=== PATIENT | female | born 1980 | race Caucasian/White ===

== ENCOUNTER 2021-09-27 15:11 | Observation (INO) | payer BC ==
[2021-09-27 15:59] LABS: Basophils % (A) 1 %; Eosinophils # (A) 0.1 k/uL (0-0.7); Eosinophils % (A) 1 %; HCT 42.6 % (34.0-46.0); HGB 13.7 gm/dL (11.4-16.0); Lymphocytes # (A) 1.5 k/uL (1.0-4.8); Lymphocytes % (A) 29 %; MCH 31.3 pg (25.0-35.0); MCHC 32.1 g/dL (31.0-37.0); MCV 97.7 fL (80.0-100.0); Mean Platelet Volume 7.2; Monocytes # (A) 0.3 k/uL (0-1.0); Monocytes % (A) 6 %; Neutrophils # (A) 3.2 k/uL (1.3-7.7); Neutrophils % (A) 61 %; Platelet Count 235 k/uL (150-450); RBC 4.36 m/uL (3.80-5.40); RDW 12.1 % (11.5-15.5); WBC 5.2 k/uL (3.8-10.6)
[2021-09-27 16:15] LABS: Partial Thromboplastin Time 23.4 sec (22.0-30.0); Prothrombin Time 10.9 sec (9.0-12.0)
[2021-09-27 16:20] LABS: ALT 8 U/L (4-34); AST 19 U/L (14-36); African American GFR (CKD) >90 (>60 ml/min/1.73 sqM); Albumin 4.2 g/dL (3.5-5.0); Alkaline Phosphatase 43 U/L (38-126); Anion Gap 7 mmol/L; Blood Urea Nitrogen 14 mg/dL (7-17); Calcium 9.1 mg/dL (8.4-10.2); Carbon Dioxide 24 mmol/L (22-30); Chloride 106 mmol/L (98-107); Glucose 85 mg/dL (74-99); Non-African American GFR(CKD) >90 (>60 ml/min/1.73 sqM); Potassium 3.8 mmol/L (3.5-5.1); Sodium 137 mmol/L (137-145); Total Bilirubin 0.4 mg/dL (0.2-1.3)
--- NOTE | 2021-09-27 17:45 | ED ---
General Adult HPI - General Chief complaint: Chest Pain Stated complaint: Chest Pain Time Seen by Provider: 09/27/21 17:34 Source: patient, RN notes reviewed Mode of arrival: ambulatory Limitations: no limitations - History of Present Illness Initial comments: Patient is a pleasant 41-year-old female presenting to the emergency Department with complaints of chest discomfort. Symptoms have been waxing and waning over the past week. No discomfort at this time. Discomfort feels like heaviness. No radiation. Patient did see her doctor who advised him to come to the emergency department. Patient does have strong family history of cardiac disease at a young age. No associated dyspnea, nausea, or diaphoresis. - Related Data Allergies Allergy/AdvReac Type Severity Reaction Status Date / Time No Known Allergies Allergy Verified 09/27/21 15:16 Review of Systems ROS Statement: Those systems with pertinent positive or pertinent negative responses have been documented in the HPI. ROS Other: All systems not noted in ROS Statement are negative. Constitutional: Denies: fever Eyes: Denies: eye pain ENT: Denies: ear pain Respiratory: Denies: cough Cardiovascular: Reports: as per HPI, chest pain Endocrine: Denies: fatigue Gastrointestinal: Denies: abdominal pain Genitourinary: Denies: dysuria Musculoskeletal: Denies: back pain Skin: Denies: rash Neurological: Denies: weakness Past Medical History Past Medical History: No Reported History History of Any Multi-Drug Resistant Organisms: None Reported Past Surgical History: No Surgical Hx Reported Past Psychological History: No Psychological Hx Reported Smoking Status: Never smoker Past Alcohol Use History: None Reported Past Drug Use History: None Reported General Exam Limitations: no limitations General appearance: alert, in no apparent distress Head exam: Present: normocephalic Eye exam: Present: normal appearance Neck exam: Present: normal inspection Respiratory exam: Present: normal lung sounds bilaterally. Absent: chest wall tenderness Cardiovascular Exam: Present: regular rate, normal rhythm Expanded Peripheral pulses: 2+: Radial (R), Radial (L), Dorsalis Pedis (R), Dorsalis Pedis (L) GI/Abdominal exam: Present: soft. Absent: tenderness Extremities exam: Present: normal inspection. Absent: pedal edema, calf tenderness Neurological exam: Present: alert Psychiatric exam: Present: normal affect, normal mood Skin exam: Present: normal color Course Vital Signs 09/27/21 15:16 Temperature 99.5 F Pulse Rate 105 H Respiratory 20 Rate Blood Pressure 151/88 O2 Sat by Pulse 100 Oximetry EKG Findings - EKG Comments: EKG Findings:: Normal sinus rhythm with rate of 86. NJ 118. QRS 98. QT 380. QTC 44. Normal axis. Low QRS voltage. Incomplete right bundle branch block. No acute ST change. Medical Decision Making - Medical Decision Making Patient reevaluated and resting comfortably in bed. Patient updated on results and plan. Case discussed with Dr. Santo, admit covering for Dr. Flores. - Lab Data Result diagrams: 09/27/21 15:32 09/27/21 15:32 Lab Results 09/27/21 09/27/21 09/27/21 Range/Units 15:32 15:32 15:32 WBC 5.2 (3.8-10.6) k/uL RBC 4.36 (3.80-5.40) m/uL Hgb 13.7 (11.4-16.0) gm/dL Hct 42.6 (34.0-46.0) % MCV 97.7 (80.0-100.0) fL MCH 31.3 (25.0-35.0) pg MCHC 32.1 (31.0-37.0) g/dL RDW 12.1 (11.5-15.5) % Plt Count 235 (150-450) k/uL MPV 7.2 Neutrophils % 61 % Lymphocytes % 29 % Monocytes % 6 % Eosinophils % 1 % Basophils % 1 % Neutrophils # 3.2 (1.3-7.7) k/uL Lymphocytes # 1.5 (1.0-4.8) k/uL Monocytes # 0.3 (0-1.0) k/uL Eosinophils # 0.1 (0-0.7) k/uL Basophils # 0.0 (0-0.2) k/uL PT 10.9 (9.0-12.0) sec INR 1.0 (<1.2) APTT 23.4 (22.0-30.0) sec Sodium 137 (137-145) mmol/L Potassium 3.8 (3.5-5.1) mmol/L Chloride 106 (98-107) mmol/L Carbon Dioxide 24 (22-30) mmol/L Anion Gap 7 mmol/L BUN 14 (7-17) mg/dL Creatinine 0.62 (0.52-1.04) mg/dL Est GFR (CKD-EPI)AfAm >90 (>60 ml/min/1.73 sqM) Est GFR (CKD-EPI)NonAf >90 (>60 ml/min/1.73 sqM) Glucose 85 (74-99) mg/dL Calcium 9.1 (8.4-10.2) mg/dL Magnesium 2.0 (1.6-2.3) mg/dL Total Bilirubin 0.4 (0.2-1.3) mg/dL AST 19 (14-36) U/L ALT 8 (4-34) U/L Alkaline Phosphatase 43 (38-126) U/L Troponin I (0.000-0.034) ng/mL Total Protein 7.0 (6.3-8.2) g/dL Albumin 4.2 (3.5-5.0) g/dL 09/27/21 Range/Units 15:32 WBC (3.8-10.6) k/uL RBC (3.80-5.40) m/uL Hgb (11.4-16.0) gm/dL Hct (34.0-46.0) % MCV (80.0-100.0) fL MCH (25.0-35.0) pg MCHC (31.0-37.0) g/dL RDW (11.5-15.5) % Plt Count (150-450) k/uL MPV Neutrophils % % Lymphocytes % % Monocytes % % Eosinophils % % Basophils % % Neutrophils # (1.3-7.7) k/uL Lymphocytes # (1.0-4.8) k/uL Monocytes # (0-1.0) k/uL Eosinophils # (0-0.7) k/uL Basophils # (0-0.2) k/uL PT (9.0-12.0) sec INR (<1.2) APTT (22.0-30.0) sec Sodium (137-145) mmol/L Potassium (3.5-5.1) mmol/L Chloride (98-107) mmol/L Carbon Dioxide (22-30) mmol/L Anion Gap mmol/L BUN (7-17) mg/dL Creatinine (0.52-1.04) mg/dL Est GFR (CKD-EPI)AfAm (>60 ml/min/1.73 sqM) Est GFR (CKD-EPI)NonAf (>60 ml/min/1.73 sqM) Glucose (74-99) mg/dL Calcium (8.4-10.2) mg/dL Magnesium (1.6-2.3) mg/dL Total Bilirubin (0.2-1.3) mg/dL AST (14-36) U/L ALT (4-34) U/L Alkaline Phosphatase (38-126) U/L Troponin I <0.012 (0.000-0.034) ng/mL Total Protein (6.3-8.2) g/dL Albumin (3.5-5.0) g/dL - Radiology Data Radiology results: image reviewed Disposition Clinical Impression: Chest pain Disposition: ADMITTED IP TO THIS [facility] Is patient prescribed a controlled substance at d/c from ED?: No Referrals: Dory Flores MD [Primary Care Provider] - 1-2 days Decision Time: 18:20
[2021-09-27] MEDS ORDERED: ASPIRIN 81 MG PO STA (18:20)
[2021-09-27] MEDS ORDERED: NITROGLYCERIN SL TABS 0.4 MG TAB SUBLINGUAL PRN (18:20)
--- NOTE | 2021-09-27 18:27 | XR ---
EXAMINATION TYPE: XR chest 1V portable DATE OF EXAM: 09/27/2021 COMPARISON: NONE HISTORY: Chest pressure TECHNIQUE: Single view FINDINGS: Heart and mediastinum are normal. Lungs are clear. Diaphragm is normal. Bony thorax is inta ct. IMPRESSION: Normal chest.
[2021-09-27] MEDS: NITROGLYCERIN OINT 1 INCH/GM PACKET TOPICAL SCH (19:05)
[2021-09-27] MEDS: ACETAMINOPHEN TAB 325 MG TAB PO PRN (21:59)
[2021-09-28] MEDS: NITROGLYCERIN OINT 1 INCH/GM PACKET TOPICAL SCH ×2 (01:40→05:58)
[2021-09-28 07:45] VITALS: BP 111/74; PULSE 75; RESP 18; TEMP 98.1
[2021-09-28] MEDS: ACETAMINOPHEN TAB 325 MG TAB PO PRN (07:53)
[2021-09-28] MEDS ORDERED: ASPIRIN 325 MG TAB PO SCH (09:00)
[2021-09-28] MEDS ORDERED: ASPIRIN 81 MG PO SCH (09:00)
--- NOTE | 2021-09-28 09:13 | P.CRDCN ---
History of Present Illness History of present illness: This is a 41 year old female with no significant past medical history. 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 We are consulted for chest pain. Patient presented to the emergency department with complaints of chest pressure. Patient states she began to have left sided chest pressure 1 week ago. She states it is intermittent, comes and goes. She states it lasts for about 30 minutes, however, a few days ago it lasted about 5 hours. She states she will sit down take some deep breaths and the chest pressure will resolve. She thought it was due to stress at work, however the pain has continued for 1 week. She had associated left arm heaviness. She denies associated diaphoresis, shortness of breath, nausea, vomiting. She denies fever, cough, chills, lightheadedness, dizziness, syncope or near syncope. She denies history of NV, CAD, hypertension, diabetes, stroke, or dyslipidemia. She has a significant family history of CAD. On her father's side her grandfather of an NV in his 30s, her father had NV in his 50s, and her uncle had an NV in his 50s as well. She denies smoking, alcohol or illicit drug use. She states she presented to her PCP office yesterday and was advised to go to the emergency department for further evaluation. DIAGNOSTICS EKG reveals sinus rhythm, heart rate 86, T wave inversion in lead III, incomplete right bundle branch block, no significant STT wave abnormalities to suggest ischemia. No prior EKG to compare Telemetry tracings indicate sinus rhythm, heart rate 70s80s Chest xray no acute cardiopulmonary process Laboratory reviewed, troponin negative 3, sodium 137, potassium 3.8, BUN 14, serum crit 0.6, magnesium 2.0, COVID-19 negative, CBC unremarkable Current home medications include aspirin 81 mg daily, zinc, vitamin D, vitamin C, Depo-Provera REVIEW OF SYSTEMS At the time of my exam: CONSTITUTIONAL: Denies fever or chills. CARDIOVASCULAR: Denies chest pain, shortness of breath, orthopnea, PND or palpitations. RESPIRATORY: Denies cough. GASTROINTESTINAL: Denies abdominal pain, diarrhea, constipation, nausea or vomiting. MUSCULOSKELETAL: Denies myalgias. NEUROLOGIC: Denies numbness, tingling, headache or weakness. ENDOCRINE: Denies fatigue, weight change, polydipsia or polyurina. GENITOURINARY: Denies burning, hematuria or urgency with micturation. HEMATOLOGIC: Denies history of anemia or bleeding. PHYSICAL EXAMINATION Blood pressure 111/74, heart rate 75, afebrile, oxygen saturation is 99% on room air CONSTITUTIONAL: No apparent distress. HEENT: Head is normocephalic. Pupils are equal, round. Sclerae anicteric. Mucous membranes of the mouth are moist. No JVD. No carotid bruit. CHEST EXAMINATION: Lungs are clear to auscultation. No chest wall tenderness is noted on palpation or with deep breathing. HEART EXAMINATION: Regular rate and rhythm. S1, S2 heard. No murmurs, gallops or rub. ABDOMEN: Soft, nontender. Positive bowel sounds. EXTREMITIES: 2+ peripheral pulses, no lower extremity edema and no calf ten derness. SKIN: Warm, dry NEUROLOGIC EXAMINATION: Patient is awake, alert and oriented x3. ASSESSMENT Chest pain, atypical, acute coronary has been ruled out Family history of coronary artery disease PLAN An acute coronary event has been ruled out with no EKG evidence of ischemia and negative cardiac enzymes. Obtain 2D echocardiogram and doppler study to assess cardiac structure and function. Perform Stress echo test to assess for stress induced cardiac ischemia. If abnormal will consider coronary angiography. Check Lipid Panel If stress test is negative for reversible ischemia, okay to discharge patient from cardiology perspective Thank you kindly for this consultation. Nurse Practitioner note has been reviewed, I agree with a documented findings and plan of care. Patient was seen and examined. Past Medical History Past Medical History: No Reported History History of Any Multi-Drug Resistant Organisms: None Reported Past Surgical History: No Surgical Hx Reported Past Anesthesia/Blood Transfusion Reactions: No Reported Reaction Past Psychological History: No Psychological Hx Reported Smoking Status: Never smoker Past Alcohol Use History: None Reported Past Drug Use History: None Reported - Past Family History Father Family Medical History: Myocardial Infarction (NV) Additional Family Medical History / Comment(s): from [place]. Mother Family Medical History: Congestive Heart Failure (CHF) Medications and Allergies Home Medications Medication Instructions Recorded Confirmed Type Ascorbic Acid [Vitamin C] 1,000 mg PO DAILY 09/27/21 09/27/21 History Aspirin EC [Ecotrin Low Dose] 81 mg PO DAILY 09/27/21 09/27/21 History Cholecalciferol [Vitamin D3 (25 25 mcg PO DAILY 09/27/21 09/27/21 History Mcg = 1000 Iu)] Medroxyprogesterone Acetate 150 mg IM Q84D 09/27/21 09/27/21 History [Depo-Provera] Zinc Gluconate [Zinc] 50 mg PO DAILY 09/27/21 09/27/21 History Allergies Allergy/AdvReac Type Severity Reaction Status Date / Time No Known Allergies Allergy Verified 09/27/21 15:16 Physical Exam Vitals: Vital Signs Temp Pulse Pulse Resp BP BP Pulse Ox 09/28/21 02:00 98.3 F 71 15 104/64 98 09/28/21 01:45 85 09/27/21 21:18 98.8 F 85 14 119/75 100 09/27/21 18:35 91 18 135/94 100 09/27/21 15:16 99.5 F 105 H 20 151/88 100 Intake and Output 09/27/21 09/28/21 09/28/21 22:59 06:59 14:59 Other: # Voids 2 Weight 77.111 kg Results 09/27/21 15:32 09/27/21 15:32 Cardiac Enzymes 09/27/21 09/27/21 09/27/21 Range/Units 15:32 15:32 18:40 AST 19 (14-36) U/L Troponin I <0.012 <0.012 (0.000-0.034) ng/mL 09/27/21 Range/Units 20:58 AST (14-36) U/L Troponin I 0.014 (0.000-0.034) ng/mL Coagulation 09/27/21 Range/Units 15:32 PT 10.9 (9.0-12.0) sec APTT 23.4 (22.0-30.0) sec CBC 09/27/21 Range/Units 15:32 WBC 5.2 (3.8-10.6) k/uL RBC 4.36 (3.80-5.40) m/uL Hgb 13.7 (11.4-16.0) gm/dL Hct 42.6 (34.0-46.0) % Plt Count 235 (150-450) k/uL Comprehensive Metabolic Panel 09/27/21 Range/Units 15:32 Sodium 137 (137-145) mmol/L Potassium 3.8 (3.5-5.1) mmol/L Chloride 106 (98-107) mmol/L Carbon Dioxide 24 (22-30) mmol/L BUN 14 (7-17) mg/dL Creatinine 0.62 (0.52-1.04) mg/dL Glucose 85 (74-99) mg/dL Calcium 9.1 (8.4-10.2) mg/dL AST 19 (14-36) U/L ALT 8 (4-34) U/L Alkaline Phosphatase 43 (38-126) U/L Total Protein 7.0 (6.3-8.2) g/dL Albumin 4.2 (3.5-5.0) g/dL Current Medications Generic Name Dose Route Start Last Admin Trade Name Freq PRN Reason Stop Dose Admin Acetaminophen 650 mg 09/27/21 21:53 09/27/21 21:59 Acetaminophen Tab 325 Mg Tab PO 650 mg Q6HR PRN Administration Fever and/ or Pain Aspirin 325 mg 09/28/21 09:00 Aspirin 325 Mg Tab PO DAILY MIS Nitroglycerin 0.4 mg 09/27/21 18:20 Nitroglycerin Sl Tabs 0.4 Mg Tab SUBLINGUAL Q5M PRN Chest Pain Nitroglycerin 0.5 inch 09/27/21 18:30 09/28/21 05:58 Nitroglycerin Oint 1 Inch/Gm Packet TOPICAL Not Given Q6HR MIS Intake and Output 09/27/21 09/28/21 09/28/21 22:59 06:59 14:59 Other: # Voids 2 Weight 77.111 kg 09/27/21 15:32 09/27/21 15:32
[2021-09-28 09:25] LABS: HDL Cholesterol 51.3 mg/dL (40.00-60.00)
[2021-09-28 09:36] LABS: Chol/HDL Ratio 2.94 Ratio
--- NOTE | 2021-09-28 10:45 | P.HPIM ---
History of Present Illness H&P Date: 09/28/21 Chief Complaint: Chest pain History and Physical and Discharge Summary This is a 41-year-old female with left-sided chest pressure/heaviness radiating down left arm ,fluctuating over the last week and a half in a patient with benign past medical history with the exception of family history of CAD at young age. Denies nausea vomiting or diarrhea. Denies shortness of breath. Denies nicotine or illicit drug use. Patient reports ongoing significant stress at work. EKG reported normal sinus rhythm, with incomplete right bundle branch block. Troponins negative 3. Tested negative for coronavirus. Chest x-ray reported normal. Lipid panel pending. Hematology, coagulation and chemistry panel is unremarkable .No further chest pain since yesterday. Cardiology consult in place. Review of Systems ROS Statement: Those systems with pertinent positive or pertinent negative responses have been documented in the HPI. ROS Other: All systems not noted in ROS Statement are negative. Past Medical History Past Medical History: No Reported History History of Any Multi-Drug Resistant Organisms: None Reported Past Surgical History: No Surgical Hx Reported Past Anesthesia/Blood Transfusion Reactions: No Reported Reaction Past Psychological History: No Psychological Hx Reported Smoking Status: Never smoker Past Alcohol Use History: None Reported Past Drug Use History: None Reported - Past Family History Father Family Medical History: Myocardial Infarction (SD) Additional Family Medical History / Comment(s): from [place]. Mother Family Medical History: Congestive Heart Failure (CHF) Medications and Allergies Home Medications Medication Instructions Recorded Confirmed Type Ascorbic Acid [Vitamin C] 1,000 mg PO DAILY 09/27/21 09/27/21 History Aspirin EC [Ecotrin Low Dose] 81 mg PO DAILY 09/27/21 09/27/21 History Cholecalciferol [Vitamin D3 (25 25 mcg PO DAILY 09/27/21 09/27/21 History Mcg = 1000 Iu)] Medroxyprogesterone Acetate 150 mg IM Q84D 09/27/21 09/27/21 History [Depo-Provera] Zinc Gluconate [Zinc] 50 mg PO DAILY 09/27/21 09/27/21 History Allergies Allergy/AdvReac Type Severity Reaction Status Date / Time No Known Allergies Allergy Verified 09/27/21 15:16 Physical Exam Vitals: Vital Signs Temp Pulse Pulse Resp BP BP Pulse Ox 09/28/21 07:00 98.1 F 75 18 111/74 99 02/02/22 02:00 98.3 F 71 15 104/64 98 09/28/21 01:45 85 09/27/21 21:18 98.8 F 85 14 119/75 100 09/27/21 18:35 91 18 135/94 100 09/27/21 15:16 99.5 F 105 H 20 151/88 100 Intake and Output 09/27/21 09/28/21 09/28/21 22:59 06:59 14:59 Other: # Voids 2 Weight 77.111 kg PHYSICAL EXAM: VITAL SIGNS: As above GENERAL: Sitting up in bed, no acute distress HEENT: Conjunctivae normal. eyes normal. NECK: No JVD. No thyroid enlargement. No LNs CARDIOVASCULAR: S1, S2 regular..No murmur RESPIRATION: Breath sounds diminished in the bases. No rhonchi or crackles. No bronchial breathing. ABDOMEN: Soft, nontender . No guarding. no masses palpable. No ascites, No hepatosplenomegaly.Bowel sounds heard. LEGS: No edema. no swelling PSYCHIATRY: Alert and oriented X3, mood and affect normal. NERVOUS SYSTEM: Cranial N 2-12 grossly normal. Moves all 4 limbs. No focal deficits. Strength and sensation grossly intact. Skin: Warm and dry, no rash Results CBC & Chem 7: 09/27/21 15:32 09/27/21 15:32 Thrombosis Risk Factor Assmnt - Choose All That Apply Any of the Below Risk Factors Present?: Yes Each Factor Represents 1 point: Medical pt on bed rest Thrombosis Risk Factor Assessment Total Risk Factor Score: 1 Thrombosis Risk Factor Assessment Level: Low Risk Assessment and Plan Assessment: Acute chest pain in a patient with family history of CAD, troponins negative. Acute coronary syndrome ruled out as per cardiology. Plan: Continue on current medication regime ,monitoring and symptomatic treatment. Lipid panel pending. Evaluated by cardiology, echo,stress echo ordered. Patient will be discharged home today, in a stable condition with guarded prognosis pending her stress echo, cardiology final DC recommendations and clearance. Discharge Medication List Ascorbic Acid [Vitamin C] 1,000 mg PO DAILY 09/27/21 [History] Aspirin EC [Ecotrin Low Dose] 81 mg PO DAILY 09/27/21 [History] Cholecalciferol [Vitamin D3 (25 Mcg = 1000 Iu)] 25 mcg PO DAILY 09/27/21 [History] Medroxyprogesterone Acetate [Depo-Provera] 150 mg IM Q84D 09/27/21 [History] Zinc Gluconate [Zinc] 50 mg PO DAILY 09/27/21 [History] The impression and plan of care has been dictated as directed. : I performed a history and examination of this patient, discussed the same with the dictator. I agree with the dictator's note ,documented as a scribe. Any additional findings or plans will be noted.
--- NOTE | 2021-09-28 10:52 | ECHOF ---
Referral Reason:chest pain MEASUREMENTS -------- HEIGHT: 170.2 cm WEIGHT: 77.1 kg BP: RVIDd: 3.2 cm (< 3.3) IVSd: 0.7 cm (0.6 - 1.1) LVIDd: 4.7 cm (3.9 - 5.3) LVPWd: 0.8 cm (0.6 - 1.1) IVSs: 1.2 cm LVIDs: 2.8 cm LVPWs: 1.5 cm LAESV Index (A-L): 22.85 ml/m Ao Diam: 2.9 cm (2.0 - 3.7) AV Cusp: 1.9 cm (1.5 - 2.6) LA Diam: 2.6 cm (2.7 - 3.8) MV EXCURSION: 13.189 mm (> 18.000) MV EF SLOPE: 153 mm/s (70 - 150) EPSS: 0.8 cm MV E Fredi: 0.88 m/s MV DecT: 166 ms MV A Fredi: 0.65 m/s MV E/A Ratio: 1.35 RAP: 5.00 mmHg RVSP: 11.24 mmHg FINDINGS -------- This was a technically good study. The left ventricular size is normal. Left ventricular wall thickness is normal. Overall left vent ricular systolic function is normal with, an EF between 55 - 60 %. The diastolic filling pattern is normal for the age of the patient 8.29. The right ventricle is normal in size. The left atrial size is normal. Normal LA size by volume 22+/-6 ml/m2. The right atrial size is normal. The aortic valve is trileaflet and appears structurally normal. The mitral valve is normal. There is trace mitral regurgitation. The tricuspid valve appears structurally normal. Trace tricuspid regurgitation present. Right yassine tricular systolic pressure is normal at < 35 mmHg. There is no pulmonic regurgitation present. The aortic root size is normal. Normal inferior vena cava with normal inspiratory collapse consistent with estimated right atrial pre ssure of 5 mmHg. There is no pericardial effusion. CONCLUSIONS -------- 1. The left ventricular size is normal. 2. Left ventricular wall thickness is normal. 3. Overall left ventricular systolic function is normal with, an EF between 55 - 60 %. 4. The diastolic filling pattern is normal for the age of the patient 8.29 5. There is trace mitral regurgitation. 6. Trace tricuspid regurgitation present. 7. There is no pericardial effusion. [employer]: Marla Prieto RDCS
--- NOTE | 2021-09-29 08:13 | ECHOS ---
STRESS ECHOCARDIOGRAM INDICATIONS: Chest pain. BASELINE HEART RATE: 74 BASELINE BLOOD PRESSURE: 135/89 MAXIMUM HEART RATE: 174 MAXIMUM BLOOD PRESSURE: 180/82 85% MPHR: 154 100% MPHR: 181 METS: 11.1 MAXIMUM STAGE REACHED: 4 TOTAL EXERCISE TIME: 9:30 CLINICAL INFORMATION: Baseline EKG shows sinus rhythm, normal axis, normal intervals. Patient exercised on Ermias protocol for a total of 9-1/2 minutes, achieving 11 METS, 96% of predicted maximal heart rate, without chest pain or diagnostic ST-segment depression. Baseline echo shows normal left ventricular size, wall motion, systolic function. Post exercise there is normal hyperdynamic response of all segments of myocardium noted. CONCLUSIONS: 1. Excellent exercise tolerance. 2. Negative stress test by EKG criteria. 3. Negative stress echo. MMODL / IJN: [id number] /
== END 2021-09-28 10:44 | disposition home or self-care (01) ==
LOC: EC 15:11 → 6NMEDSUR 18:20
PROVIDERS: ADMIT Family Medicine; ATTEND Family Medicine
DX: R07.89 Other chest pain (principal); I45.10 Unspecified right bundle-branch block; Z79.82 Long term (current) use of aspirin; Z79.3 Long term (current) use of hormonal contraceptives; Z82.49 Family history of ischemic heart disease and other diseases of the circulatory system
CPT/HCPCS: 99285; 36415; 93005; 93306; 93351; 80061; 80053; 83735; 84484; 85025; 85610; 85730; 83721; 87635; 71045; G0378 ×2

== ENCOUNTER → 2024-01-24 | Outpatient (CLI) | payer BC ==
--- NOTE | 2024-01-24 20:17 | MM ---
Reason for Exam: Screening (asymptomatic). Patient History: Menarche at age 15. Patient has no children. Risk Values: Nimco 5 year model risk: 0.7%. NCI Lifetime model risk: 11.0%. Tissue Density: The breasts are heterogeneously dense, which may obscure small masses. Findings: Analyzed By CAD. Right upper outer quadrant global asymmetry which shows no persisting abnormality on 3-D images. No significant mass, suspicious microcalcifications or other discrete abnormality is seen. Overall Assessment: Benign, BI-RAD 2 Management: Screening Mammogram of both breasts in 1 year. . Patient should continue monthly self-breast exams. A clinical breast exam by your physician is recommended on an annual basis. This exam should not preclude additional follow-up of suspicious palpable abnormalities. Note on Nimco scores and lifetime risk: 1. A Nimco score greater than 3% is considered moderate risk. If this is the case, consider specialist referral to assess eligibility for a risk reducing agent. 2. If overall lifetime risk for the development of breast cancer is 20% or higher, the patient may qualify for future screening with alternating mammogram and breast MRI. Electronically signed and approved by: Alo Del Cid M.D. Radiologist
== END | disposition home or self-care (01) ==
LOC: RADMAMWWP 07:52
PROVIDERS: ATTEND Family Medicine
DX: Z12.31 Encounter for screening mammogram for malignant neoplasm of breast (principal)
CPT/HCPCS: 77063; 77067